=== PATIENT | male | born 1995 | race Caucasian/White ===

== ENCOUNTER 2017-12-20 11:07 | Emergency (ER) | payer OTHER ==
[~2017-12-20] VITALS: Ht 190.5 cm; Wt 72.6 kg
[2017-12-20 12:07] VITALS: BP 121/69
--- NOTE | 2017-12-20 17:05 | EKG ---
[place] [address] ELECTROCARDIOGRAM REPORT Name: KATYA HERNANDEZ Room: [facility]#: [id number] Admission: 12/20/17 Attend Phys: Discharge: 12/20/17 Date of : [birth year] Report #: [id number] THIS REPORT FOR: //name// [facility] ED Test Date: 2017-12-20 Test Time: 11:12:42 Pat Name: KATYA HERNANDEZ Department: Room: Gender: M [employer] Operator: Etienne GOYAL : 1995 Requested By: Ivan Martini Order Number: [id number] MD: Pete Young Measurements Intervals [place] Rate: 60 P: 63 HI: 131 QRS: 82 QRSD: 96 T: 68 QT: 377 QTc: 377 Interpretive Statements Sinus rhythm RSR' in V1 or V2, probably normal variant No previous ECG available for comparison Electronically Signed On 12-20-2017 17:05:37 CDT by Pete Young [email or web address] <ELECTRONICALLY SIGNED> By: Pete Young MD, [facility] 12/20/17 1705 1112 11 Pete Young MD, FACC /EPI
== END 2017-12-20 12:08 | disposition home or self-care (01) ==
LOC: M.ERS 11:07
DX: R07.89 Other chest pain (principal)